=== PATIENT | male | born 1975 ===

== ENCOUNTER 2022-09-10 12:20 | Emergency (ER) | payer MEDICAID, OTHER ==
[~2022-09-10] VITALS: Ht 205.7 cm; Wt 100.0 kg
[2022-09-10 12:40] VITALS: BP 155/106
== END 2022-09-10 15:00 | disposition home or self-care (01) ==
LOC: ER 12:20 → EEVIPCON 12:20 → ER 14:59
DX: S40.012A Contusion of left shoulder, initial encounter (principal); V43.52XA Car driver injured in collision with other type car in traffic accident, initial encounter; Y93.I9 Activity, other involving external motion; Y92.89 Other specified places as the place of occurrence of the external cause; Y99.8 Other external cause status